=== PATIENT | female | born 1990 | race African-American/Black ===

== ENCOUNTER 2022-08-21 07:33 | Inpatient (IN) ==
[2022-08-21] MEDS ORDERED: LIDOCAINE 1% LOCAL 20 ML VIAL INFIL PRN (07:48)
[2022-08-21] MEDS ORDERED: LACTATED RINGER'S 1,000 ML IV PRN (07:48)
[2022-08-21] MEDS ORDERED: OXYTOCIN 30 UNITS/500 ML BAG IV PRN ×3 (07:48→15:11)
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
[2022-08-21 08:33] LABS: Hematocrit (blood only) 33.6 % (37.0-47.0); Hemoglobin 11.5 g/dl (12.0-16.0); Mean Corpuscular Hemoglobin 31.7 pg (25.0-34.0); Mean Corpuscular Hgb Conc 34.2 g/dL (32.0-36.0); Mean Corpuscular Volume 92.6 fL (80.0-100.0); Mean Platelet Volume 10.3 fL (9.4-12.4); Platelet Count 275 K/uL (130-400); RDW Coefficient of Variation 13.3 % (11.5-14.5); RDW Standard Deviation 44.3 fL (36.4-46.3); Red Blood Count 3.63 M/uL (4.20-5.40); White Blood Count 6.71 K/ul (4.8-10.8)
--- NOTE | 2022-08-21 14:54 | Delivery Summary ---
Vaginal Delivery Summary Date of Service August 21, 2022 Vaginal Delivery Summary Patient was induced postdates this was her fifth baby she was 2 to 3 cm Pitocin was started she did not wish epidural artificial rupture membranes group B strep negative and COVID-negative she rapidly progressed to fully dilated delivering over a total of 1 contraction delivering a baby in occiput anterior position there was no nuchal cord fluid was clear easy delivery with no excessive force live vigorous male cord clamped and clamped cord gases obtained cord blood obtained placenta removed with traction IV Pitocin was started
--- NOTE | 2022-08-21 14:56 | Delivery Summary ---
Vaginal Delivery Summary Date of Service August 21, 2022 Vaginal Delivery Summary Initial note did not transcribe this is second attempt patient was induced for postdates did not request epidural group B strep negative COVID-negative artificial rupture membranes was performed after starting Pitocin for clear fluid she rapidly progressed to fully dilated delivered a baby after only 1 push delivering in occiput anterior 's head and then no nuchal cord gentle traction on the baby no excessive force easy delivery live vigorous male cord clamped and cut cord gases obtained cord blood obtained placenta removed with traction IV Pitocin was started uterine tone improved there was minimal blood loss 100 mL there was no tearing noted sponge instrument counts correct
[2022-08-21] MEDS ORDERED: HYDROCORTISONE ACETATE 25 MG SUPP PR PRN (15:11)
[2022-08-21] MEDS ORDERED: ACETAMINOPHEN 325 MG TAB PO PRN (15:11)
[2022-08-21] MEDS ORDERED: BENZOCAINE 20% AER SPR 82.5 GM CAN EXT PRN (15:11)
[2022-08-21] MEDS ORDERED: DIPHTHERIA/TETANUS/PERTUSSIS 0.5mL SYR/VIAL (Age 7+yrs) IM ONE (15:11)
[2022-08-21] MEDS ORDERED: bisacodyL 10 MG SUPP PR PRN (15:11)
[2022-08-21 15:33] LABS: Base Excess Cord Arterial Bld -2.3 mEq/L (-9-1.8); CO2 Cord Arterial Blood 52 mmHg (39.1-73.5); HCO3 Cord Arterial Blood 25 mmol/L (19.7-28.5); Oxygen Sat Cord Arterial Blood < 60.0 % (<60); PO2 Cord Arterial Blood 17 mmHg (4.1-31.7); pH Cord Arterial Blood 7.29 (7.1-7.38)
[2022-08-21 15:42] LABS: Cord Venous Blood HCO3 19 mmol/L (18.4-26.8); Cord Venous Blood PCO2 30 mmHg (30.4-57.2); Cord Venous Blood PO2 29 mmHg (14.1-43.3); O2 Saturation Cord Venous Bld 64.6 % (<68)
[2022-08-21] MEDS: IBUPROFEN 600 MG TAB PO PRN ×2 (16:00→21:10)
[2022-08-21] MEDS: DOCUSATE SODIUM 100 MG CAP PO SCH (21:11)
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
[2022-08-22] MEDS: IBUPROFEN 600 MG TAB PO PRN ×3 (01:29→14:48)
[2022-08-22 07:16] LABS: Hematocrit (blood only) 32.5 % (37.0-47.0); Hemoglobin 11.1 g/dl (12.0-16.0); Mean Corpuscular Hemoglobin 31.4 pg (25.0-34.0); Mean Corpuscular Hgb Conc 34.2 g/dL (32.0-36.0); Mean Corpuscular Volume 92.1 fL (80.0-100.0); Mean Platelet Volume 10.6 fL (9.4-12.4); Platelet Count 266 K/uL (130-400); RDW Coefficient of Variation 13.3 % (11.5-14.5); RDW Standard Deviation 44.7 fL (36.4-46.3); Red Blood Count 3.53 M/uL (4.20-5.40); White Blood Count 9.95 K/ul (4.8-10.8)
[2022-08-22] MEDS ORDERED: PRENATAL VITAMIN 1 TAB PO SCH (08:00)
[2022-08-22] MEDS: DOCUSATE SODIUM 100 MG CAP PO SCH (09:10)
[2022-08-22] MEDS ORDERED: bisacodyL 5 MG TABEC PO SCH (20:00)
== END 2022-08-22 17:20 | disposition home or self-care (01) | DRG 807 ==
LOC: 4S1 07:33 → 4E2 18:08

== ENCOUNTER 2022-08-27 11:11 | Inpatient (IN) ==
[2022-08-27] MEDS ORDERED: SODIUM CHLORIDE 0.9% 1000ML 1,000 ML IV ONE (11:20)
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
--- NOTE | 2022-08-27 12:39 | Ultrasound Report ---
LEFT LOWER EXTREMITY VENOUS DOPPLER HISTORY: Acute pain of the left lower leg l calf pain COMPARISON STUDY: None. FINDINGS: There is normal compressibility, flow, and augmentation within the left lower extremity musa p venous system. IMPRESSION: No DVT within the left lower extremity. ACT 112: Negative or not required by law. Electronically signed by: Huy Henry M.D. 08/27/2022 12:37 PM
[2022-08-27 12:42] LABS: Basophils # (auto) 0.02 K/uL (0-0.2); Basophils % (auto) 0.3 %; Eosinophils # (auto) 0.13 K/uL (0-0.50); Eosinophils % (auto) 2.1 %; Hematocrit (blood only) 33.6 % (37.0-47.0); Hemoglobin 10.9 g/dl (12.0-16.0); Immature Granulocytes # (auto) 0.02 K/uL (0.01-0.20); Immature Granulocytes % (auto) 0.3 %; Lymphocytes # (auto) 2.32 K/uL (1.2-3.4); Lymphocytes % (auto) 36.9 %; Mean Corpuscular Hgb Conc 32.4 g/dL (32.0-36.0); Mean Corpuscular Volume 95.5 fL (80.0-100.0); Mean Platelet Volume 10.8 fL (9.4-12.4); Monocytes # (auto) 0.81 K/uL (0.11-0.59); Monocytes % (auto) 12.9 %; Neutrophils # (auto) 2.98 K/uL (1.40-6.50); Neutrophils % (auto) 47.5 %; Platelet Count 328 K/uL (130-400); RDW Coefficient of Variation 13.3 % (11.5-14.5); RDW Standard Deviation 46.5 fL (36.4-46.3); Red Blood Count 3.52 M/uL (4.20-5.40); White Blood Count 6.28 K/ul (4.8-10.8)
[2022-08-27] MEDS ORDERED: ACETAMINOPHEN 325 MG TAB PO STA (12:54)
[2022-08-27 13:06] LABS: Albumin Globulin Ratio 1.1 (0.9-2); Albumin Level 3.4 gm/dl (3.4-5.0); BUN Creatinine Ratio 17.5 (10-20); Bilirubin,Total 0.4 mg/dl (0.2-1.0); Calcium 9.2 mg/dl (8.5-10.1); Creatinine Clr Calc Pharmacy 145.4 ml/min; Est GFR (African American) 142.2 ml/min; Est GFR (Non-African American) 122.7 ml/min; Potassium 3.9 mmol/L (3.5-5.1); Total Protein 6.4 gm/dl (6.0-8.3)
[2022-08-27 14:17] LABS: POC Urine Bilirubin Negative (Negative); POC Urine Blood 250 (Negative); POC Urine Glucose Normal (Normal); POC Urine Ketones Negative (Negative); POC Urine Leukocytes Negative (Negative); POC Urine Nitrite Negative (Negative); POC Urine Protein Trace (Negative); POC Urine Urobilinogen Normal (Normal); POC Urine pH 5 (4.5-7.5)
[2022-08-27 14:35] LABS: Appearance Urine Clear (Clear); Bacteria Urine Automated Negative (Negative); Bilirubin Urine Negative (Negative); Blood Urine 3+ (Negative); Cast Urine Automated 0 /lpf (0-5); Color Urine Yellow; Glucose Urine UA Negative (Negative); Ketones Urine Negative (Negative); Leukocyte Esterase Urine Negative (Negative); Nitrite Urine Negative (Negative); Protein Urine Negative (Negative); RBC Urine Automated 0-4 /hpf (0-4); Urobilinogen Urine Negative (Negative); pH Urine 6.5 (4.5-7.5)
[2022-08-27] MEDS ORDERED: MAG SULFATE 4GM BOLUS FROM BAG IV ONE (15:05)
[2022-08-27] MEDS ORDERED: LIDOCAINE 1% LOCAL 20 ML VIAL INFIL PRN (15:06)
[2022-08-27] MEDS ORDERED: MAGNESIUM SULFATE / WTR 40 GM/1,000 ML BAG IV SCH (15:15)
[2022-08-27 15:50] LABS: Magnesium 1.7 mg/dl (1.7-2.4)
[2022-08-27] MEDS: MAGNESIUM SULFATE / WTR 40 GM/1,000 ML BAG IV SCH (16:11)
[2022-08-27] MEDS: LACTATED RINGER'S 1,000 ML IV PRN (16:12)
[2022-08-27] MEDS ORDERED: ACETAMINOPHEN 325 MG TAB PO PRN (18:06)
[2022-08-27] MEDS ORDERED: METOCLOPRAMIDE HCL INJ 5 MG/ML 2 ML VIAL IV STA (18:07)
--- NOTE | 2022-08-27 21:12 | History & Physical Report ---
Date of Service August 27, 2022 Assessment & Plan (1) Severe pre-eclampsia: Plan: Caprice is a 32-year-old approximately 6 days status post vaginal presents with preeclampsia with severe features as detailed above. Start magnesium per protocol. Will treat blood pressures as indicated. Discussed with patient possibility of longer term medications for blood pressure management. questions answered to the patient's satisfaction. (2) Severe pre-eclampsia, : Admission and Anticipated Discharge Date Admission Date: August 27, 2022 History of Present Illness Primary Care Provider: NO PCP Caprice is a 32-year-old approximately 6 days status post vaginal delivery. Patient presents to ED with severe headache. In the ED patient was noted have persistent severe range blood pressures. patient reports that she tried Motrin and Tylenol for headaches without any improvement. Denies any other preeclampsia symptoms. Labs for preeclampsia were unremarkable. Of note patient has a history of preeclampsia in prior pregnancies. I reviewed the blood pressure findings and discussed that with blood pressures alone and in addition to the headache that she does meet criteria for preeclampsia with severe features. I recommended that she be admitted for magnesium sulfate for seizure prophylaxis. Patient reports that she has exam sulfate with her prior pregnancies as well and agreed to the admission. Discussed that we would treat severe range blood pressures as needed and may initiate longer-term therapies for blood pressure management. Allergies Allergy/AdvReac Type Severity Reaction Status Date / Time mushroom Allergy Severe Swelling Verified 08/27/22 15:02 of Lip/Tongue/Throat latex Allergy Intermediate hives Verified 08/27/22 15:02 Home Medications Medication Instructions Recorded Confirmed Type aspirin 81 mg tablet,delayed 81 mg PO DAILY 07/28/22 08/27/22 History release (Adult Aspirin Regimen) prenat.vits,angel,[id number] 1 tab PO DAILY 07/28/22 08/27/22 History Patient History Family History Sister Deafness in left ear Brother Skin cancer Other Diabetes Social History Smoking Status: Former smoker Second Hand Exposure: No; Hx Alcohol Use: No Hx Substance Use: No Preferred Language: Occitan Communication Ability: Effective Chief Executive Officer Required: No Beliefs That Will Affect Care: [facility] Samaritan Beliefs: No males in room, except for Dr Roland and anesthesia. No pork products marital status: marital status details: Carey Goss ([id number]) [phone] Current Living Situation: Family Current Living Situation Comment: Lives with and 4 children current occupational status: unemployed Feels Safe at Home: Yes Assistive Devices: None Physical Exam Gastrointestinal (Abdomen): Inspection/Auscultation: abdomen not distended Percussion/Palpation: abdomen soft; abdomen nontender, no guarding and abdomen not rigid Results & Data ([facility]) Vital Signs (Past 12 Hours) Vital Signs Temp Pulse Resp BP BP Pulse Ox O2 Del Method 08/27/22 21:00 16 08/27/22 20:00 16 08/27/22 19:15 16 08/27/22 19:15 18 08/27/22 17:20 36.6 C 71 18 147/84 H 100 08/27/22 17:20 18 08/27/22 19:25 18 08/27/22 21:02 84 148/81 H 08/27/22 21:00 66 98 08/27/22 20:55 68 97 08/27/22 20:50 70 99 08/27/22 20:32 70 146/84 H 08/27/22 20:02 89 150/86 H 08/27/22 19:46 78 100 08/27/22 19:41 84 100 08/27/22 19:36 79 100 08/27/22 19:31 100 08/27/22 19:31 85 08/27/22 19:31 83 133/81 08/27/22 19:26 71 100 08/27/22 19:21 69 100 08/27/22 19:16 100 08/27/22 19:16 64 08/27/22 19:16 36.7 C 67 144/89 H 08/27/22 19:11 67 100 08/27/22 19:06 72 100 08/27/22 19:01 68 139/85 100 08/27/22 18:56 68 100 08/27/22 18:51 69 100 08/27/22 18:46 100 08/27/22 18:46 72 08/27/22 18:46 75 133/80 08/27/22 18:41 73 100 08/27/22 18:36 69 100 08/27/22 18:31 75 133/81 08/27/22 18:15 81 100 08/27/22 18:16 76 142/87 H 08/27/22 18:13 77 90 08/27/22 18:10 70 100 08/27/22 18:05 80 100 08/27/22 18:01 76 150/90 H 08/27/22 18:00 79 100 08/27/22 17:55 75 100 08/27/22 17:50 74 100 08/27/22 17:45 88 98 08/27/22 17:46 72 152/89 H 08/27/22 17:43 77 93 08/27/22 17:40 81 100 08/27/22 17:35 71 100 08/27/22 17:33 78 92 08/27/22 17:31 73 150/87 H 08/27/22 17:30 72 99 08/27/22 16:47 Room Air 08/27/22 14:45 145/90 H 08/27/22 14:30 154/100 H 08/27/22 14:15 162/100 H 08/27/22 14:32 154/100 H 08/27/22 14:09 142/92 H 08/27/22 13:49 100 Room Air 08/27/22 13:45 169/110 H 08/27/22 13:45 99 Room Air 08/27/22 13:40 99 Room Air 08/27/22 13:30 99 Room Air 08/27/22 13:30 158/103 H 08/27/22 13:20 97 Room Air 08/27/22 13:15 183/96 H 08/27/22 13:15 100 Room Air 08/27/22 13:10 99 Room Air 08/27/22 13:00 100 Room Air 08/27/22 13:00 162/119 H 08/27/22 12:57 98 Room Air 08/27/22 12:56 165/108 H 08/27/22 11:47 74 21 99 Room Air 08/27/22 13:31 158/103 H 98 Room Air 08/27/22 13:30 183/96 H 100 Room Air 08/27/22 12:55 66 18 165/108 H 99 Room Air 08/27/22 11:45 82 17 100 Room Air 08/27/22 11:45 147/93 H 08/27/22 11:40 68 14 100 Room Air 08/27/22 11:38 69 19 100 Room Air 08/27/22 11:13 36.6 C 68 18 165/98 H 100 Room Air Coding Level of Care Code 55868 INT INP/OBS CARE 2MIN Diagnoses Severe pre-eclampsia O14.10 Severe pre-eclampsia, O14.15
[2022-08-28] MEDS: IBUPROFEN 600 MG TAB PO PRN ×2 (00:51→10:31)
[2022-08-28] MEDS: LACTATED RINGER'S 1,000 ML IV PRN (04:00)
--- NOTE | 2022-08-28 06:15 | Electrocardiogram Report ---
Test Reason : Blood Pressure : / mmHG Vent. Rate : 064 BPM Atrial Rate : 064 BPM P-R Int : 152 ms QRS Dur : 080 ms QT Int : 346 ms P-R-T Axes : 005 030 036 degrees QTc Int : 356 ms Normal sinus rhythm with sinus arrhythmia Normal ECG No previous ECGs available Confirmed by Sg Roger ([id number]) on 08/28/2022 6:15:26 AM Referred By: REFERRED SELF Confirmed By:Sg Roger
[2022-08-28] MEDS: MAGNESIUM SULFATE / WTR 40 GM/1,000 ML BAG IV SCH (10:39)
--- NOTE | 2022-08-28 16:19 | Obstetrical Progress Note ---
Date of Service August 28, 2022 Assessment & Plan (1) Severe pre-eclampsia, : Plan now s/p 24hr magnesium, bps have been normal, only 2 times sbp>140. soreness, ? related to lack of caffeine, will try coffee and tylenol. offered stronger pain meds but she declines for now. espinoza out. transfer to floor but plan more frequent bps so that if when she is more ambulatory they are elevated that we can impact them with meds sooner. pt aware and agreeable to this plan. Admission and Anticipated Discharge Date Admission Date: August 27, 2022 Subjective pt sitting up smiling. has soreness in her head, frontal, not severe like in ER last night. Has not had her normal caffeine. This soreness has not been helped by ibuprofen. no other concerns. no n/v. notes with her past needed to be sent home on bp meds. Review of Systems Constitutional: as per Subjective / HPI Physical Exam Constitutional: WD/WN, vitals as above Gastrointestinal (Abdomen): no ruq or epig tenderness Musculoskeletal: no edema Neurologic: grossly normal Dtrs +1 patellar, no clonus Psychiatric: A+Ox3, euthymic affect Results & Data ([facility]) Vital Signs (Past 12 Hours) Vital Signs Pulse Resp BP Pulse Ox 08/28/22 14:53 18 08/28/22 14:08 18 08/28/22 13:15 19 08/28/22 12:05 19 08/28/22 11:10 16 08/28/22 10:05 18 08/28/22 09:06 16 08/28/22 07:45 16 08/28/22 06:20 16 08/28/22 05:03 16 08/28/22 16:10 82 99 08/28/22 16:05 84 99 08/28/22 16:02 80 127/69 08/28/22 16:00 79 99 08/28/22 15:55 80 99 08/28/22 15:50 85 99 08/28/22 15:45 82 99 08/28/22 15:40 84 98 08/28/22 15:35 83 98 08/28/22 15:32 77 132/78 08/28/22 15:30 80 99 08/28/22 15:25 79 98 08/28/22 15:20 75 99 08/28/22 15:15 79 99 08/28/22 15:10 78 99 08/28/22 15:05 79 100 08/28/22 15:02 74 125/74 08/28/22 15:00 76 100 08/28/22 14:55 81 99 08/28/22 14:50 85 99 08/28/22 14:45 77 99 08/28/22 14:40 80 100 08/28/22 14:35 82 99 08/28/22 14:32 75 123/75 08/28/22 14:30 82 100 08/28/22 14:25 80 99 08/28/22 14:20 83 99 08/28/22 14:15 82 99 08/28/22 14:10 85 99 08/28/22 14:05 88 99 08/28/22 14:02 88 131/73 08/28/22 14:00 88 99 08/28/22 13:55 87 99 08/28/22 13:50 87 100 08/28/22 13:45 91 H 99 08/28/22 13:40 90 99 08/28/22 13:35 96 H 99 08/28/22 13:32 93 H 136/67 08/28/22 13:30 95 H 100 08/28/22 13:25 93 H 99 08/28/22 13:20 96 H 99 08/28/22 13:15 90 99 08/28/22 13:10 95 H 99 08/28/22 13:05 97 H 99 08/28/22 13:02 96 H 133/76 08/28/22 13:00 93 H 99 08/28/22 12:55 96 H 99 08/28/22 12:50 89 100 08/28/22 12:45 82 99 08/28/22 12:40 81 99 08/28/22 12:35 81 99 08/28/22 12:32 85 129/73 08/28/22 12:30 86 99 08/28/22 12:25 85 99 08/28/22 12:20 80 98 08/28/22 12:15 88 99 08/28/22 12:10 76 97 08/28/22 12:05 76 97 08/28/22 12:02 78 146/87 H 08/28/22 12:00 75 97 08/28/22 11:55 73 98 08/28/22 11:50 71 98 08/28/22 11:45 75 97 08/28/22 11:40 75 97 08/28/22 11:35 72 97 08/28/22 11:32 75 152/85 H 08/28/22 11:30 78 97 08/28/22 11:25 78 98 08/28/22 11:20 73 98 08/28/22 11:15 79 98 08/28/22 11:10 78 97 08/28/22 11:05 78 96 08/28/22 11:02 74 122/75 08/28/22 11:00 83 98 08/28/22 10:55 81 98 08/28/22 10:50 81 99 08/28/22 10:45 86 99 08/28/22 10:40 81 100 08/28/22 10:35 87 100 08/28/22 10:32 81 128/68 08/28/22 10:30 84 99 08/28/22 10:25 78 100 08/28/22 10:20 79 100 08/28/22 10:15 79 100 08/28/22 10:10 80 99 08/28/22 10:05 81 100 08/28/22 10:02 81 131/67 08/28/22 10:00 82 99 08/28/22 09:55 80 99 08/28/22 09:50 80 100 08/28/22 09:45 84 99 08/28/22 09:40 77 99 08/28/22 09:35 78 99 08/28/22 09:32 80 131/80 08/28/22 09:30 80 99 08/28/22 09:25 83 100 08/28/22 09:20 79 99 08/28/22 09:15 79 99 08/28/22 09:10 79 100 08/28/22 09:06 78 131/78 08/28/22 09:05 78 100 08/28/22 09:02 81 122/106 H 08/28/22 09:00 78 100 08/28/22 08:55 78 100 08/28/22 08:50 75 100 08/28/22 08:45 78 100 08/28/22 08:40 85 100 08/28/22 08:35 78 100 08/28/22 08:32 80 145/76 H 08/28/22 08:30 80 100 08/28/22 08:25 77 100 08/28/22 08:20 78 100 08/28/22 08:15 80 100 08/28/22 08:10 90 100 08/28/22 08:05 75 100 08/28/22 08:02 75 108/70 08/28/22 08:00 77 100 08/28/22 07:55 75 100 08/28/22 07:50 76 100 08/28/22 07:45 75 99 08/28/22 07:40 80 97 08/28/22 07:35 75 98 08/28/22 07:32 79 116/65 08/28/22 07:30 72 98 08/28/22 07:25 74 98 08/28/22 07:20 72 98 08/28/22 07:15 73 98 08/28/22 07:10 73 98 08/28/22 07:05 72 98 08/28/22 07:02 72 119/76 08/28/22 07:00 73 98 08/28/22 06:55 74 98 08/28/22 06:50 73 98 08/28/22 06:45 77 99 08/28/22 06:40 79 97 08/28/22 06:35 80 97 08/28/22 06:32 82 122/68 08/28/22 06:30 81 97 08/28/22 06:25 81 98 08/28/22 06:20 82 100 08/28/22 06:17 79 126/70 08/28/22 06:15 77 96 08/28/22 06:10 75 99 08/28/22 06:05 81 97 08/28/22 06:00 82 96 08/28/22 05:55 81 96 08/28/22 05:50 82 96 08/28/22 05:45 82 96 08/28/22 05:40 81 96 08/28/22 05:35 82 98 08/28/22 05:30 81 98 08/28/22 05:25 82 98 08/28/22 05:20 82 97 08/28/22 05:15 77 98 08/28/22 05:10 77 98 08/28/22 05:05 76 97 08/28/22 05:00 79 97 08/28/22 04:55 78 98 08/28/22 04:50 76 98 08/28/22 04:45 77 98 08/28/22 04:40 80 99 08/28/22 04:35 81 98 08/28/22 04:32 81 114/58 L 08/28/22 04:30 82 99 08/28/22 04:25 86 99 08/28/22 04:20 84 99 08/28/22 04:15 84 99 PG Care Time/CCT Total # of Minutes Spent Total Time Spent with Patient: Total time spent is greater than 50% in coordination of care (as documented) at patient's floor/unit and/or counseling patient: Coding Level of Care Code None Diagnoses Severe pre-eclampsia, O14.15
[2022-08-28] MEDS: ACETAMINOPHEN 500 MG TAB PO PRN (16:26)
--- NOTE | 2022-08-28 21:39 | Communication Note ---
Date of Service: August 28, 2022 reviewed bps, will start labetalol. notified nursing.
[2022-08-28] MEDS: LABETALOL HCL 100 MG TAB PO SCH (22:01)
[2022-08-29] MEDS: ACETAMINOPHEN 500 MG TAB PO PRN (04:00)
--- NOTE | 2022-08-29 06:23 | Obstetrical Progress Note ---
Date of Service August 29, 2022 Assessment & Plan (1) Severe pre-eclampsia, : Plan pt now >12hr s/p pp magnesium. started on labetalol, labs pending. she is doing well and can likely go home later today as long as we see adequate response of bps to her bp med. she is aware that oncoming provider to make those decisions. will need 1wk bp check in office. parameters to call reviewed. Subjective Ambulation: ambulating normally Voiding: no voiding problems Diet Tolerance:: regular diet Lochia:: Small Feeding Type:: breast feeding feels well. no headache or abd pain. bps ok, did get labs drawn that are pending. started labetalol. Physical Exam Constitutional WD/WN, vitals as above Respiratory normal respiratory effort, lungs clear to auscultation Cardiovascular Rate/Rhythm: regular rate and regular rhythm Gastrointestinal (Abdomen) Inspection/Auscultation: abdomen normal to inspection Percussion/Palpation: abdomen soft; abdomen nontender Fundus firm 2cm down Musculoskeletal nt calves no edema Neurologic grossly normal Psychiatric A+Ox3, euthymic affect Results & Data ([facility]) Vital Signs (Past 12 Hours) Vital Signs Temp Pulse Resp BP Pulse Ox O2 Del Method 08/29/22 03:15 99.3 F 78 18 141/80 H 98 Room Air 08/28/22 23:30 Room Air 08/28/22 23:30 98.6 F 81 20 138/78 100 Room Air 08/28/22 22:04 77 08/28/22 21:00 Room Air 08/28/22 21:00 99.0 F 78 20 151/86 H 98 Room Air 08/28/22 19:00 98.8 F 80 18 140/85 99 Room Air
[2022-08-29 06:29] LABS: Hematocrit (blood only) 28.6 % (37.0-47.0); Hemoglobin 9.7 g/dl (12.0-16.0); Mean Corpuscular Hemoglobin 31.4 pg (25.0-34.0); Mean Corpuscular Hgb Conc 33.9 g/dL (32.0-36.0); Mean Corpuscular Volume 92.6 fL (80.0-100.0); Mean Platelet Volume 10.1 fL (9.4-12.4); Platelet Count 306 K/uL (130-400); RDW Standard Deviation 43.9 fL (36.4-46.3); Red Blood Count 3.09 M/uL (4.20-5.40)
[2022-08-29 06:46] LABS: Albumin Globulin Ratio 1.1 (0.9-2); Albumin Level 2.8 gm/dl (3.4-5.0); Bilirubin,Total 0.3 mg/dl (0.2-1.0); Calcium 7.2 mg/dl (8.5-10.1); Creatinine Clr Calc Pharmacy 131.5 ml/min; Est GFR (African American) 137.6 ml/min; Est GFR (Non-African American) 118.7 ml/min; Globulin 2.5 gm/dl (2.5-4.0); Total Protein 5.3 gm/dl (6.0-8.3)
[2022-08-29] MEDS: LABETALOL HCL 100 MG TAB PO SCH (09:17)
== END 2022-08-29 15:30 | disposition home or self-care (01) | DRG 776 ==
LOC: ED 11:11 → 4S1 15:06 → 4E1 08-28 17:38